=== PATIENT | male | born 1985 | race Caucasian/White ===

== ENCOUNTER 2023-03-24 21:54 | Emergency (ER) | payer MEDICAID, OTHER ==
[~2023-03-24] VITALS: Ht 170.2 cm; Wt 69.8 kg
[2023-03-24 23:45] VITALS: O2SAT 100
[2023-03-25 02:24] VITALS: BP 132/77; PULSE 84; RESP 19; TEMP 97.8
== END 2023-03-25 02:24 | disposition home or self-care (01) ==
LOC: ER 21:54
DX: R42 Dizziness and giddiness (principal); M54.59 Other low back pain
CPT/HCPCS: 71045; 99283

== ENCOUNTER 2023-06-29 12:47 | Emergency (ER) | payer MEDICAID ==
[~2023-06-29] VITALS: Ht 172.7 cm; Wt 64.0 kg
[2023-06-29 12:51] VITALS: O2SAT 100
[2023-06-29] MEDS: IBUPROFEN 600MG TABLET PO ONE (13:15)
[2023-06-29] MEDS ORDERED: IBUP-2029 MT (14:44)
[2023-06-29 15:02] VITALS: BP 127/74; PULSE 74; RESP 17; TEMP 98.3
== END 2023-06-29 15:09 | disposition home or self-care (01) ==
LOC: ER 12:47
DX: S09.90XA Unspecified injury of head, initial encounter (principal); R68.84 Jaw pain; W19.XXXA Unspecified fall, initial encounter; Y93.89 Activity, other specified; Y92.89 Other specified places as the place of occurrence of the external cause; Y99.8 Other external cause status
CPT/HCPCS: 70486; 99284

== ENCOUNTER 2023-09-30 21:56 | Emergency (ER) | payer MEDICAID, OTHER ==
[~2023-09-30] VITALS: Ht 175.3 cm; Wt 69.0 kg
[~2023-09-30 21:56] MED LIST: IBUP-2029 MT
[2023-09-30 22:15] VITALS: BP 139/71; PULSE 85; RESP 16; TEMP 97.9; O2SAT 100
[2023-09-30] MEDS: KETOROLAC 15MG/ML VIAL IM ONE (22:45)
[2023-09-30] MEDS: CYCLOBENZAPRINE 10MG TABLET PO SCH (22:45)
== END 2023-09-30 23:55 | disposition home or self-care (01) ==
LOC: ER 21:56
DX: M54.50 Low back pain, unspecified (principal)
CPT/HCPCS: 99283; J1885

== ENCOUNTER 2023-12-31 22:16 | Emergency (ER) | payer MEDICAID ==
[~2023-12-31] VITALS: Ht 177.8 cm; Wt 73.0 kg
[2023-12-31 22:18] VITALS: O2SAT 100
[2023-12-31] MEDS ORDERED: KETOROLAC 15MG/ML VIAL IM ONE (22:45)
[2024-01-01] MEDS ORDERED: KETOROLAC 15MG/ML VIAL IM NR (01:00)
[2024-01-01 01:01] VITALS: BP 129/81; PULSE 62; RESP 16; TEMP 36.33624; O2SAT 100
== END 2024-01-01 01:08 | disposition home or self-care (01) ==
LOC: ER 22:16
DX: S00.83XA Contusion of other part of head, initial encounter (principal); Y04.0XXA Assault by unarmed brawl or fight, initial encounter; Y93.89 Activity, other specified; Y92.89 Other specified places as the place of occurrence of the external cause; Y99.8 Other external cause status
CPT/HCPCS: 70110; 99283; Z7610; J1885

== ENCOUNTER 2024-01-16 21:27 | Emergency (ER) | payer MEDICAID, OTHER ==
[~2024-01-16] VITALS: Ht 170.2 cm; Wt 66.0 kg
[2024-01-16 21:38] VITALS: O2SAT 100
[2024-01-17 00:30] VITALS: BP 132/60; PULSE 79; RESP 18; TEMP 98; O2SAT 100
[2024-01-17] MEDS ORDERED: IBUPROFEN 600MG TABLET PO ONE (01:00)
[2024-01-17] MEDS: IBUPROFEN 600MG TABLET PO NR (01:15)
[2024-01-17] MEDS ORDERED: IBUP-2029 MT (01:43)
== END 2024-01-17 02:11 | disposition home or self-care (01) ==
LOC: ER 21:27
DX: M79.674 Pain in right toe(s) (principal); Z98.890 Other specified postprocedural states
CPT/HCPCS: 73660; 99283